=== PATIENT | male | born 1965 | race American Indian/Alaskan Native ===

== ENCOUNTER 2018-10-14 04:16 | Inpatient (IN) | payer SELFPAY ==
[2018-10-14] MEDS ORDERED: CATAPRES ONE (04:35)
[2018-10-14] MEDS ORDERED: CATAPRES PO ONE (04:43)
[2018-10-14 05:22] LABS: Basophils % (Auto) 0.6 % (0.0-1.8); Eosinophils # (Auto) 0.1 K/mm3 (0.0-0.4); Eosinophils % (Auto) 1.6 % (0.0-4.3); Hematocrit 39.5 % (35.5-45.6); Hemoglobin 13.2 gm/dl (11.8-15.2); Lymphocytes # (Auto) 2.1 K/mm3 (1.2-5.4); Lymphocytes % (Auto) 26.8 % (13.4-35.0); Mean Corpuscular HGB Conc 33 % (32-34); Mean Corpuscular Volume 90 fl (84-94); Monocytes # (Auto) 0.6 K/mm3 (0.0-0.8); Monocytes % (Auto) 8.1 % (0.0-7.3); Platelet Count 308 K/mm3 (140-440); Red Blood Count 4.38 M/mm3 (3.65-5.03); Red Cell Distribution Width 13.6 % (13.2-15.2)
[2018-10-14 05:39] LABS: Calcium 9.4 mg/dL (8.4-10.2)
--- NOTE | 2018-10-14 07:51 | Emergency Department Report ---
ED Neck Pain [facility] Chief Complaint: Neck Pain/Injury Stated Complaint: RIGHT SIDE NECK PAIN Time Seen by Provider: 10/14/18 07:50 ED Review of Systems ROS: Stated complaint: RIGHT SIDE NECK PAIN Other details as noted in HPI ED Past Medical Hx - Past Medical History Previous Medical History?: Yes Hx Hypertension: Yes Hx Congestive Heart Failure: No Hx Diabetes: Yes Hx Asthma: No Hx COPD: No Additional medical history: hypertension, right shoulder FX - Surgical History Past Surgical History?: No - Social History Smoking Status: Never Smoker Substance Use Type: None - Medications Home Medications: Home Medications Medication Instructions Recorded Confirmed Last Taken Type Insulin Glargine,Hum.rec.anlog 15 unit SQ QHS #3 ml 09/03/13 10/14/18 Unknown Rx [Lantus] Acetaminophen/Codeine 1 tab PO Q6H PRN #15 tab 05/15/14 10/14/18 Unknown Rx [Acetaminophen-Codeine #3 TAB] Diclofenac Dr [Voltaren Dr] 75 mg PO TID #21 tablet 05/15/14 10/14/18 Unknown Rx Metoprolol Succinate 50 mg PO HS 10/14/18 10/14/18 Unknown History NIFEdipine [Nifedipine ER] 1 tab PO HS 10/14/18 10/14/18 Unknown History Olmesartan Medoxomil 40 mg PO HS 10/14/18 10/14/18 Unknown History Torsemide 5 mg PO DAILY 10/14/18 10/14/18 Unknown History hydrALAZINE [Apresoline TAB] 50 mg PO BID 10/14/18 10/14/18 Unknown History Neck Pain Exam - Exam General: Vital signs noted. No distress. Alert and acting appropriately. ED Course Vital Signs 10/14/18 10/14/18 10/14/18 04:24 04:44 06:33 Temperature 98.2 F Pulse Rate 106 H 106 H 102 H Respiratory 18 18 Rate Blood Pressure 226/104 Blood Pressure 226/104 179/100 [Left] O2 Sat by Pulse 99 100 Oximetry ED Medical Decision Making - Lab Data Result diagrams: 10/14/18 05:01 10/14/18 05:01 Critical care attestation.: If time is entered above; I have spent that time in minutes in the direct care of this critically ill patient, excluding procedure time. ED Disposition Condition: Stable Referrals: MARIAM PALMER JR, MD [Primary Care Provider] - 3-5 Days
[2018-10-14] MEDS ORDERED: NORCO 5/325 PO ONE (10:01)
[2018-10-14] MEDS ORDERED: ZOFRAN IV ONE (10:03)
[2018-10-14] MEDS ORDERED: MORPHINE IV ONE (10:03)
[2018-10-14] MEDS ORDERED: NORMODYNE IV ONE (10:03)
[2018-10-14 10:17] LABS: Creatine Kinase MB 5.7 ng/mL (0.0-4.0)
[2018-10-14 10:18] LABS: Alanine Aminotransferase 21 units/L (7-56); Albumin 3.3 g/dL (3.9-5)
[2018-10-14 10:18] LABS: Bilirubin,Urine NEG (Negative); Blood,Urine SM (Negative); Color,Urine Straw (Yellow); Urobilinogen,Urine < 2.0 mg/dL (<2.0)
[2018-10-14 10:19] LABS: Bilirubin,Direct < 0.2 mg/dL (0-0.2)
--- NOTE | 2018-10-14 10:55 | Cat Scan Report ---
PROCEDURE: CT CERVICAL SPINE WO CON TECHNIQUE: Axial images obtained of the cervical spine without intravenous contrast. Sagittal and co demetrius reconstructions also obtained HISTORY: l side neck pain COMPARISONS: No priors. FINDINGS: There is no evidence of acute cervical spine fracture. Degenerative changes of the cervical spine with multilevel facet joint arthropathy, narrowing of inte rvertebral disc spaces and disc osteophyte complexes. Calcification along the nuchal ligament. No prevertebral soft tissue swelling. Multilevel neural foraminal narrowing most prominently on the left at C3-C4 and bilaterally at C7-T1. IMPRESSION: . No evidence of acute cervical spine fracture. Degenerative changes of the cervical spine with multilevel neural foraminal narrowing most prominentl y on the left at C3-C4 and bilaterally at C7-T1. This document is electronically signed by Tevin Moore MD., October 14 2018 10:53:42 AM ET
--- NOTE | 2018-10-14 11:05 | Cat Scan Report ---
PROCEDURE: CT HEAD/BRAIN WO CON TECHNIQUE: Axial images of the head obtained without intravenous contrast. HISTORY: HTN, Neck pain, consider SAH COMPARISONS: Prior CT of the head from May 10, 2013 FINDINGS: Ventricles are normal in size and configuration. Mild periventricular hypodensity consistent with chronic ischemic changes related to small vessel dis ease, unchanged. Hyperdense and partially calcified mass bordering the left frontal skull, unchanged and most consiste nt with meningioma. This measures approximately 1.4 cm in diameter. No acute intracranial hemorrhage or hematoma. No edema or sulcal effacement. No mass or mass effect. Left maxillary mucous retention cyst or polyp. IMPRESSION: . No acute intracranial pathology. Stable hyperdense partially calcified mass bordering the left frontal skull, most consistent with sma ll meningioma. This document is electronically signed by Tevin Moore MD., October 14 2018 11:03:41 AM ET
--- NOTE | 2018-10-14 13:04 | Emergency Department Report ---
ED General Adult HPI - General Chief complaint: Neck Pain/Injury Stated complaint: RIGHT SIDE NECK PAIN Time Seen by Provider: 10/14/18 07:50 Source: patient Mode of arrival: Ambulatory Limitations: No Limitations - History of Present Illness Initial comments: This is a 53-year-old male who presents to the emergency department with the chief complaint of left sided neck pain. He states that he's had chronic problems with his right shoulder since a work-related injury. He states that his shoulder was fractured. He has had an MR study of the shoulder but does not mention rotator cuff injury. He states that he did not have an MR of his neck nor is his neck pain obviously related to injury. Does not complain of headache nausea vomiting or photophobia. The pain is principally in the left side of his neck. This is an insulin-dependent diabetic with history of hypertension. He had normal renal function when seen 2013. He states that he has been to the doctor "5 times since then". He states his last blood work was within a year and was normal. He is found to have a creatinine of 3.7 today. He has no history of chronic renal insufficiency. Quality: aching Consistency: intermittent Improves with: none Worsens with: movement Associated Symptoms: denies other symptoms - Related Data Home Medications Medication Instructions Recorded Confirmed Last Taken Metoprolol Succinate 50 mg PO HS 10/14/18 10/14/18 Unknown NIFEdipine [Nifedipine ER] 1 tab PO HS 10/14/18 10/14/18 Unknown Olmesartan Medoxomil 40 mg PO HS 10/14/18 10/14/18 Unknown Torsemide 5 mg PO DAILY 10/14/18 10/14/18 Unknown hydrALAZINE [Apresoline TAB] 50 mg PO BID 10/14/18 10/14/18 Unknown Previous Rx's Medication Instructions Recorded Last Taken Type Insulin Glargine,Hum.rec.anlog 15 unit SQ QHS #3 ml 09/03/13 Unknown Rx [Lantus] Acetaminophen/Codeine 1 tab PO Q6H PRN #15 tab 05/15/14 Unknown Rx [Acetaminophen-Codeine #3 TAB] Ana Cristina Beaver [Tayo Bevaer] 75 mg PO TID #21 tablet 05/15/14 Unknown Rx Allergies Allergy/AdvReac Type Severity Reaction Status Date / Time No Known Allergies Allergy Unverified 11/21/13 10:21 ED Review of Systems ROS: Stated complaint: RIGHT SIDE NECK PAIN Other details as noted in HPI Constitutional: denies: chills, fever Eyes: denies: eye pain, eye discharge, vision change ENT: denies: ear pain, throat pain Respiratory: denies: cough, shortness of breath, wheezing Cardiovascular: denies: chest pain, palpitations Endocrine: no symptoms reported Gastrointestinal: denies: abdominal pain, nausea, diarrhea Genitourinary: denies: urgency, dysuria Musculoskeletal: denies: back pain, joint swelling, arthralgia Skin: denies: rash, lesions Neurological: denies: headache, weakness, paresthesias Psychiatric: denies: anxiety, depression Hematological/Lymphatic: denies: easy bleeding, easy bruising ED Past Medical Hx - Past Medical History Previous Medical History?: Yes Hx Hypertension: Yes Hx Congestive Heart Failure: No Hx Diabetes: Yes Hx Asthma: No Hx COPD: No Additional medical history: hypertension, right shoulder FX - Surgical History Past Surgical History?: No - Social History Smoking Status: Never Smoker Substance Use Type: None - Medications Home Medications: Home Medications Medication Instructions Recorded Confirmed Last Taken Type Insulin Glargine,Hum.rec.anlog 15 unit SQ QHS #3 ml 09/03/13 10/14/18 Unknown Rx [Lantus] Acetaminophen/Codeine 1 tab PO Q6H PRN #15 tab 05/15/14 10/14/18 Unknown Rx [Acetaminophen-Codeine #3 TAB] Diclofenac Dr [Voltareoren Dr] 75 mg PO TID #21 tablet 05/15/14 10/14/18 Unknown Rx Metoprolol Succinate 50 mg PO HS 10/14/18 10/14/18 Unknown History NIFEdipine [Nifedipine ER] 1 tab PO HS 10/14/18 10/14/18 Unknown History Olmesartan Medoxomil 40 mg PO HS 10/14/18 10/14/18 Unknown History Torsemide 5 mg PO DAILY 10/14/18 10/14/18 Unknown History hydrALAZINE [Apresoline TAB] 50 mg PO BID 10/14/18 10/14/18 Unknown History ED Physical Exam - General Limitations: No Limitations General appearance: alert, in no apparent distress - Head Head exam: Present: atraumatic, normocephalic - Eye Eye exam: Present: normal appearance. Absent: scleral icterus - ENT ENT exam: Present: mucous membranes moist - Neck Neck exam: Present: normal inspection, tenderness (paravertebral discomfort somewhat diffusely on the left, no vertebral tenderness). Absent: meningismus, full ROM (some discomfort on range of motion) - Respiratory Respiratory exam: Present: normal lung sounds bilaterally. Absent: respiratory distress - Cardiovascular Cardiovascular Exam: Present: regular rate, normal rhythm. Absent: systolic murmur, diastolic murmur, rubs, gallop - GI/Abdominal GI/Abdominal exam: Present: soft, normal bowel sounds. Absent: distended, tenderness, guarding, rebound, rigid - Rectal Rectal exam: Present: deferred - Extremities Exam Extremities exam: Present: normal inspection - Back Exam Back exam: Present: normal inspection - Neurological Exam Neurological exam: Present: alert, oriented X3, CN II-XII intact. Absent: motor sensory deficit - Psychiatric Psychiatric exam: Present: normal affect, normal mood - Skin Skin exam: Present: warm, dry, intact, normal color. Absent: rash ED Course Vital Signs 10/14/18 10/14/18 10/14/18 04:24 04:44 06:33 Temperature 98.2 F Pulse Rate 106 H 106 H 102 H Respiratory 18 18 Rate Blood Pressure 226/104 Blood Pressure 226/104 179/100 [Left] O2 Sat by Pulse 99 100 Oximetry 10/14/18 10/14/18 10/14/18 08:23 08:30 08:34 Temperature Pulse Rate 78 Respiratory 22 18 20 Rate Blood Pressure 175/88 Blood Pressure [Left] O2 Sat by Pulse 93 Oximetry 10/14/18 10/14/18 10/14/18 08:45 09:00 09:15 Temperature Pulse Rate 78 78 87 Respiratory 17 18 23 Rate Blood Pressure 179/91 175/91 193/100 Blood Pressure [Left] O2 Sat by Pulse 94 94 96 Oximetry 10/14/18 10/14/18 09:28 10:33 Temperature 98.6 F Pulse Rate 72 Respiratory Rate Blood Pressure 194/97 Blood Pressure [Left] O2 Sat by Pulse Oximetry - Reevaluation(s) Reevaluation #1: Discussed with Dr. Mcconnell. B/P improved 160/90. Acute renal insufficiency with uncontrolled HTN. Patient has severe cervical spondylosis. He'll need further workup with MRI however it has not required on an emergency basis. He will be admitted to the hospitalist service for further care and evaluation. 10/14/18 13:19 ED Medical Decision Making - Lab Data Result diagrams: 10/14/18 05:01 10/14/18 05:01 Laboratory Results - last 24 hr 10/14/18 10/14/18 10/14/18 05:01 05:01 09:28 WBC 7.9 RBC 4.38 Hgb 13.2 Hct 39.5 MCV 90 MCH 30 MCHC 33 RDW 13.6 Plt Count 308 Lymph % (Auto) 26.8 [place] % (Auto) 8.1 H Eos % (Auto) 1.6 Baso % (Auto) 0.6 Lymph # 2.1 [place] # 0.6 Eos # 0.1 Baso # 0.0 Seg Neutrophils % 62.9 Seg Neutrophils # 4.9 Sodium 137 Potassium 4.4 Chloride 101.9 Carbon Dioxide 22 Anion Gap 18 BUN 41 H Creatinine 3.7 H Estimated GFR 21 BUN/Creatinine Ratio 11 Glucose 183 H Calcium 9.4 Phosphorus Total Bilirubin Direct Bilirubin Indirect Bilirubin AST ALT Alkaline Phosphatase Total Creatine Kinase CK-MB (CK-2) CK-MB (CK-2) Rel Index Total Protein Albumin Albumin/Globulin Ratio Urine Color Straw Urine Turbidity Clear Urine pH 6.0 Ur Specific [place] 1.015 Urine Protein 100 mg/dl Urine Glucose (UA) 50 Urine Ketones Neg Urine Blood Sm Urine Nitrite Neg Urine Bilirubin Neg Urine Urobilinogen < 2.0 Ur Leukocyte Esterase Neg Urine WBC (Auto) 1.0 Urine RBC (Auto) 4.0 U Epithel Cells (Auto) < 1.0 10/14/18 10:00 WBC RBC Hgb Hct MCV MCH MCHC RDW Plt Count Lymph % (Auto) [place] % (Auto) Eos % (Auto) Baso % (Auto) Lymph # [place] # Eos # Baso # Seg Neutrophils % Seg Neutrophils # Sodium Potassium Chloride Carbon Dioxide Anion Gap BUN Creatinine Estimated GFR BUN/Creatinine Ratio Glucose Calcium Phosphorus 3.50 Total Bilirubin < 0.20 Direct Bilirubin < 0.2 Indirect Bilirubin 0.0 AST 21 ALT 21 Alkaline Phosphatase 53 Total Creatine Kinase 628 H CK-MB (CK-2) 5.7 H CK-MB (CK-2) Rel Index 0.9 Total Protein 7.5 Albumin 3.3 L Albumin/Globulin Ratio 0.8 Urine Color Urine Turbidity Urine pH Ur Specific [place] Urine Protein Urine Glucose (UA) Urine Ketones Urine Blood Urine Nitrite Urine Bilirubin Urine Urobilinogen Ur Leukocyte Esterase Urine WBC (Auto) Urine RBC (Auto) U Epithel Cells (Auto) - EKG Data -: EKG Interpreted by Me EKG shows normal: sinus rhythm, axis, intervals Rate: normal - EKG Data When compared to previous EKG there are: no significant change (similar to 2013), previous EKG unavailable Interpretation: other (left axis deviation, possible left anterior fascicular block, LVH with associated repolarization abnormality, poor R-wave progression; abnormal EKG. ) Possible old inferior zone, tiny r wave. 10/14/18 14:35 10/14/18 14:36 Critical care attestation.: If time is entered above; I have spent that time in minutes in the direct care of this critically ill patient, excluding procedure time. 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
[2018-10-14] MEDS ORDERED: ASPIRIN PO ONE (13:51)
[2018-10-14] MEDS ORDERED: ASPIRIN ONE (14:36)
--- NOTE | 2018-10-14 15:16 | Ultrasound Report ---
PROCEDURE: US RENAL BILAT TECHNIQUE: Renal ultrasound. HISTORY: acute renal failure COMPARISONS: None currently available. FINDINGS: RIGHT kidney: 11.6 x 4.4 x 5.1 cm. Cortex measures 1.5 cm. Normal echotexture. 9 x 1 x 6 mm stone in the midpole. No hydronephrosis. No cortical lesions. LEFT kidney: 12.3 x 6.0 x 6.0 cm. Cortex measures 1.7 cm. Normal echotexture. 11 x 6 x 13 mm stone up per pole. 10 x 2 x 11 mm stone lower pole. No hydronephrosis. No cortical lesions. Bladder: Limited images of the bladder are unremarkable. IMPRESSION: * Bilateral renal stones. No hydronephrosis. This document is electronically signed by Gregory Ac MD., October 14 2018 03:14:17 PM ET
[2018-10-14] MEDS ORDERED: TYLENOL #3 PO PRN (20:11)
[2018-10-14] MEDS ORDERED: PERCOCET 5/325 PO PRN (20:15)
[2018-10-14] MEDS ORDERED: DILAUDID IV PRN (20:15)
[2018-10-14] MEDS ORDERED: TYLENOL PO PRN (20:15)
[2018-10-14] MEDS ORDERED: REGLAN IV PRN ×2 (20:15→20:34)
[2018-10-14] MEDS ORDERED: ZOFRAN IV PRN (20:15)
[2018-10-14] MEDS ORDERED: MILK OF MAGNESIA PO PRN (20:15)
[2018-10-14] MEDS ORDERED: AMBIEN PO PRN (20:15)
[2018-10-14] MEDS ORDERED: SODIUM CHLORIDE FLUSH SYRINGE 10 ML IV PRN (20:15)
--- NOTE | 2018-10-14 21:19 | History and Physical Report ---
History of Present Illness Date of examination: 10/14/18 Date of admission: 10/14/18 13:48 Chief complaint: Severe neck pain 1 day History of present illness: 52-year-old -Chinese male with past medical history significant for insulin-dependent diabetes, hypertension, right shoulder fracture and severe neck pain secondary to a object falling on his neck at work couple months ago comes in for severe left-sided neck pain. Pain is about 8 on scale of 1-10. Workup in the emergency room revealed a uncontrolled blood pressure and elevated creatinine of 3.7. His creatinine was normal the 08/31/2013. BUN/creatinine was 15 and 1.3. Past Medical History Previous Medical History?: Yes Hypertension IDDM Rt Shoulder FX Surgical History Past Surgical History?: No Social History Smoking Status: Never Smoker Substance Use Type: None Family history Htn Medications Home Medications: Home Medications Medication Instructions Recorded Confirmed Last Taken Type Insulin Glargine,Hum.rec.anlog 15 unit SQ QHS #3 ml 09/03/13 10/14/18 Unknown Rx [Lantus] Acetaminophen/Codeine 1 tab PO Q6H PRN #15 tab 05/15/14 10/14/18 Unknown Rx [Acetaminophen-Codeine #3 TAB] Diclofenac Dr [Voltaren Dr] 75 mg PO TID #21 tablet 05/15/14 10/14/18 Unknown Rx Metoprolol Succinate 50 mg PO HS 10/14/18 10/14/18 Unknown History NIFEdipine [Nifedipine ER] 1 tab PO HS 10/14/18 10/14/18 Unknown History Olmesartan Medoxomil 40 mg PO HS 10/14/18 10/14/18 Unknown History Torsemide 5 mg PO DAILY 10/14/18 10/14/18 Unknown History hydrALAZINE [Apresoline TAB] 50 mg PO BID 10/14/18 10/14/18 Unknown History Review of Systems ROS: Stated complaint: RIGHT SIDE NECK PAIN Other details as noted in HPI Constitutional: denies: chills, fever Eyes: denies: eye pain, eye discharge, vision change ENT: denies: ear pain, throat pain Respiratory: denies: cough, shortness of breath, wheezing Cardiovascular: denies: chest pain, palpitations Endocrine: no symptoms reported Gastrointestinal: denies: abdominal pain, nausea, diarrhea Genitourinary: denies: urgency, dysuria Musculoskeletal: denies: back pain, joint swelling, arthralgia Skin: denies: rash, lesions Neurological: denies: headache, weakness, paresthesias Psychiatric: denies: anxiety, depression Hematological/Lymphatic: denies: easy bleeding, easy bruising Medications and Allergies Allergies Allergy/AdvReac Type Severity Reaction Status Date / Time No Known Allergies Allergy Unverified 05/10/13 10:21 Home Medications Medication Instructions Recorded Confirmed Last Taken Type Insulin Glargine,Hum.rec.anlog 15 unit SQ QHS #3 ml 09/03/13 10/14/18 Unknown Rx [Lantus] Acetaminophen/Codeine 1 tab PO Q6H PRN #15 tab 05/15/14 10/14/18 Unknown Rx [Acetaminophen-Codeine #3 TAB] Diclofenac Dr [Tayo Beaver] 75 mg PO TID #21 tablet 05/15/14 10/14/18 Unknown Rx Metoprolol Succinate 50 mg PO HS 10/14/18 10/14/18 Unknown History NIFEdipine [Nifedipine ER] 1 tab PO HS 10/14/18 10/14/18 Unknown History Olmesartan Medoxomil 40 mg PO HS 10/14/18 10/14/18 Unknown History Torsemide 5 mg PO DAILY 10/14/18 10/14/18 Unknown History hydrALAZINE [Apresoline TAB] 50 mg PO BID 10/14/18 10/14/18 Unknown History Active Meds: Active Medications Acetaminophen (Tylenol) 650 mg PO Q4H PRN PRN Reason: Pain MILD(1-3)/Fever >100.5/MASTERSON Acetaminophen/Codeine Phosphate (Tylenol #3) 1 tab PO Q6H PRN PRN Reason: Pain Diclofenac Sodium (Tayo Beaver) 75 mg PO TID LISA Hydralazine HCl (Apresoline) 50 mg PO BID LISA Hydromorphone HCl (Dilaudid) 1 mg IV Q3H PRN PRN Reason: Pain , Severe (7-10) Insulin Glargine (Lantus) 15 units SUB-Q QHS LISA Losartan Potassium (Cozaar) 100 mg PO QHS LISA Magnesium Hydroxide (Milk Of Magnesia) 30 ml PO Q4H PRN PRN Reason: Constipation Metoclopramide HCl (Reglan) 5 mg IV Q6H PRN PRN Reason: Nausea And Vomiting Metoprolol Succinate (Toprol Xl) 50 mg PO QHS LISA Nifedipine (Procardia Xl) 60 mg PO HS LISA Ondansetron HCl (Zofran) 4 mg IV Q8H PRN PRN Reason: Nausea And Vomiting Oxycodone/Acetaminophen (Percocet 5/325) 1 tab PO Q6H PRN PRN Reason: Pain, Moderate (4-6) Sodium Chloride (Sodium Chloride Flush Syringe 10 Ml) 10 ml IV BID LISA Sodium Chloride (Sodium Chloride Flush Syringe 10 Ml) 10 ml IV PRN PRN PRN Reason: LINE FLUSH Zolpidem Tartrate (Ambien) 5 mg PO QHS PRN PRN Reason: Insomnia Exam - Constitutional Vitals: Temp Pulse Resp BP Pulse Ox 98.0 F 65 18 146/76 97 10/14/18 16:06 10/14/18 16:06 10/14/18 16:06 10/14/18 16:06 10/14/18 16:06 General appearance: Present: no acute distress, well-nourished - EENT Eyes: Present: PERRL ENT: hearing intact, clear oral mucosa, other - Neck Neck: Present: supple, normal ROM, other (cervical tenderness) - Respiratory Respiratory effort: normal Respiratory: bilateral: CTA - Cardiovascular Heart rate: 78 Rhythm: regular Heart Sounds: Present: S1 & S2. Absent: rub, click - Extremities Extremities: no ischemia, pulses intact, pulses symmetrical, No edema Peripheral Pulses: within normal limits - Abdominal General gastrointestinal: Present: soft, non-tender, non-distended, normal bowel sounds Male genitourinary: Present: normal - Rectal Rectal Exam: deferred - Integumentary Integumentary: Present: clear, warm, dry - Musculoskeletal Musculoskeletal: gait normal, strength equal bilaterally - Psychiatric Psychiatric: appropriate mood/affect, intact judgment & insight - Neurologic Neurologic: CNII-XII intact, moves all extremities - Allied Health Allied health notes reviewed: nursing, case management Results - Labs CBC & Chem 7: 10/14/18 05:01 10/14/18 05:01 Labs: Laboratory Last Values WBC 7.9 K/mm3 (4.5-11.0) 10/14/18 05:01 RBC 4.38 M/mm3 (3.65-5.03) 10/14/18 05:01 Hgb 13.2 gm/dl (11.8-15.2) 10/14/18 05:01 Hct 39.5 % (35.5-45.6) 10/14/18 05:01 MCV 90 fl (84-94) 10/14/18 05:01 MCH 30 pg (28-32) 10/14/18 05:01 MCHC 33 % (32-34) 10/14/18 05:01 RDW 13.6 % (13.2-15.2) 10/14/18 05:01 Plt Count 308 K/mm3 (140-440) 10/14/18 05:01 Lymph % (Auto) 26.8 % (13.4-35.0) 10/14/18 05:01 [place] % (Auto) 8.1 % (0.0-7.3) H 10/14/18 05:01 Eos % (Auto) 1.6 % (0.0-4.3) 10/14/18 05:01 Baso % (Auto) 0.6 % (0.0-1.8) 10/14/18 05:01 Lymph # 2.1 K/mm3 (1.2-5.4) 10/14/18 05:01 [place] # 0.6 K/mm3 (0.0-0.8) 10/14/18 05:01 Eos # 0.1 K/mm3 (0.0-0.4) 10/14/18 05:01 Baso # 0.0 K/mm3 (0.0-0.1) 10/14/18 05:01 Seg Neutrophils % 62.9 % (40.0-70.0) 10/14/18 05:01 Seg Neutrophils # 4.9 K/mm3 (1.8-7.7) 10/14/18 05:01 Sodium 137 mmol/L (137-145) 10/14/18 05:01 Potassium 4.4 mmol/L (3.6-5.0) 10/14/18 05:01 Chloride 101.9 mmol/L (98-107) 10/14/18 05:01 Carbon Dioxide 22 mmol/L (22-30) 10/14/18 05:01 Anion Gap 18 mmol/L 10/14/18 05:01 BUN 41 mg/dL (9-20) H 10/14/18 05:01 Creatinine 3.7 mg/dL (0.8-1.5) H 10/14/18 05:01 Estimated GFR 21 ml/min 10/14/18 05:01 BUN/Creatinine Ratio 11 % 10/14/18 05:01 Glucose 183 mg/dL (75-100) H 10/14/18 05:01 POC Glucose 53 (70-105) L 10/14/18 17:59 Calcium 9.4 mg/dL (8.4-10.2) 10/14/18 05:01 Phosphorus 3.50 mg/dL (2.5-4.5) 10/14/18 10:00 Total Bilirubin < 0.20 mg/dL (0.1-1.2) 10/14/18 10:00 Direct Bilirubin < 0.2 mg/dL (0-0.2) 10/14/18 10:00 Indirect Bilirubin 0.0 mg/dL 10/14/18 10:00 AST 21 units/L (5-40) 10/14/18 10:00 ALT 21 units/L (7-56) 10/14/18 10:00 Alkaline Phosphatase 53 units/L (35-129) 10/14/18 10:00 Total Creatine Kinase 628 units/L (55-170) H 10/14/18 10:00 CK-MB (CK-2) 5.7 ng/mL (0.0-4.0) H 10/14/18 10:00 CK-MB (CK-2) Rel Index 0.9 (0-4) 10/14/18 10:00 Total Protein 7.5 g/dL (6.3-8.2) 10/14/18 10:00 Albumin 3.3 g/dL (3.9-5) L 10/14/18 10:00 Albumin/Globulin Ratio 0.8 % 10/14/18 10:00 Urine Color Straw (Yellow) 10/14/18 09:28 Urine Turbidity Clear (Clear) 10/14/18 09:28 Urine pH 6.0 (5.0-7.0) 10/14/18 09:28 Ur Specific [place] 1.015 (1.003-1.030) 10/14/18 09:28 Urine Protein 100 mg/dl mg/dL (Negative) 10/14/18 09:28 Urine Glucose (UA) 50 mg/dL (Negative) 10/14/18 09:28 Urine Ketones Neg mg/dL (Negative) 10/14/18 09:28 Urine Blood Sm (Negative) 10/14/18 09:28 Urine Nitrite Neg (Negative) 10/14/18 09:28 Urine Bilirubin Neg (Negative) 10/14/18 09:28 Urine Urobilinogen < 2.0 mg/dL (<2.0) 10/14/18 09:28 Ur Leukocyte Esterase Neg (Negative) 10/14/18 09:28 Urine WBC (Auto) 1.0 /HPF (0.0-6.0) 10/14/18 09:28 Urine RBC (Auto) 4.0 /HPF (0.0-6.0) 10/14/18 09:28 U Epithel Cells (Auto) < 1.0 /HPF (0-13.0) 10/14/18 09:28 Short CBC 10/14/18 Range/Units 05:01 WBC 7.9 (4.5-11.0) K/mm3 Hgb 13.2 (11.8-15.2) gm/dl Hct 39.5 (35.5-45.6) % Plt Count 308 (140-440) K/mm3 BMP 10/14/18 05:01 Sodium 137 Potassium 4.4 Chloride 101.9 Carbon Dioxide 22 BUN 41 H Creatinine 3.7 H Glucose 183 H Calcium 9.4 Cardiac Enzymes 10/14/18 Range/Units 10:00 Total Creatine Kinase 628 H (55-170) units/L CK-MB (CK-2) 5.7 H (0.0-4.0) ng/mL Liver Function 10/14/18 Range/Units 10:00 Total Bilirubin < 0.20 (0.1-1.2) mg/dL Direct Bilirubin < 0.2 (0-0.2) mg/dL AST 21 (5-40) units/L ALT 21 (7-56) units/L Alkaline Phosphatase 53 (35-129) units/L Albumin 3.3 L (3.9-5) g/dL Urine 10/14/18 Range/Units 09:28 Urine Color Straw (Yellow) Urine pH 6.0 (5.0-7.0) Ur Specific [place] 1.015 (1.003-1.030) Urine Protein 100 mg/dl (Negative) mg/dL Urine Glucose (UA) 50 (Negative) mg/dL - Imaging and Cardiology Imaging and Cardiology: CT neck IMPRESSION: No evidence of acute cervical spine fracture. Degenerative changes of the cervical spine with multilevel neural foraminal narrowing most prominently on the left at C3-C4 and bilaterally at C7-T1. Head CT IMPRESSION: No acute intracranial pathology. Stable hyperdense partially calcified mass bordering the left frontal skull, most consistent with small meningioma. This document is electronically signed by Tevin Moore MD., October 14 2018 11:03:41 AM ET Renal ultrasound IMPRESSION: Bilateral renal stones. No hydronephrosis. This document is electronically signed by Gregory Ac MD., October 14 2018 03:14:17 PM ET Assessment and Plan Advance Directives: Yes (full code) VTE prophylaxis?: Chemical Plan of care discussed with patient/family: Yes - Patient Problems (1) Acute kidney injury Current Visit: Yes Status: Acute Plan to address problem: IV fluids for now Nephrology consult Baseline creatinine was 1.3 in August 2013 Patient on torsemide which may be causing volume depletion Torsemide kept on hold (2) Neck pain on left side Current Visit: Yes Status: Acute Plan to address problem: Has foraminal narrowing C4 C5 C6 on the left side Will get MRI of the neck for better delineation Pain control in the meantime (3) Hypertensive emergency Current Visit: Yes Status: Acute Plan to address problem: Antihypertensives restarted Adjust the medications Patient on 4 antihypertensives Compliance counseled (4) Insulin dependent diabetes mellitus Current Visit: Yes Status: Chronic Plan to address problem: Check hemoglobin A1c Continue insulin Adjust insulin dosage (5) DVT prophylaxis Current Visit: Yes Status: Acute Plan to address problem: Heparin 5000 every 12 hours and GI prophylaxis
[2018-10-14] MEDS ORDERED: APRESOLINE PO SCH (22:00)
[2018-10-14] MEDS ORDERED: OLMESARTAN MEDOXOMIL 40 MG PO SCH (22:00)
[2018-10-14] MEDS ORDERED: COZAAR PO SCH (22:00)
[2018-10-14] MEDS ORDERED: METOPROLOL SUCCINATE 50 MG PO SCH (22:00)
[2018-10-14] MEDS: PROCARDIA XL PO SCH (22:15)
[2018-10-14] MEDS: TOPROL XL PO SCH (22:16)
[2018-10-14] MEDS: SODIUM CHLORIDE FLUSH SYRINGE 10 ML IV SCH (22:18)
[2018-10-15] MEDS: LANTUS SUB-Q SCH ×2 (00:37→00:47)
[2018-10-15] MEDS: HEPARIN SUB-Q SCH ×3 (00:41→22:33)
[2018-10-15 06:36] LABS: Basophils # (Auto) 0.1 K/mm3 (0.0-0.1); Basophils % (Auto) 0.8 % (0.0-1.8); Eosinophils # (Auto) 0.1 K/mm3 (0.0-0.4); Hemoglobin 13.2 gm/dl (11.8-15.2); Lymphocytes # (Auto) 2.9 K/mm3 (1.2-5.4); Lymphocytes % (Auto) 43.2 % (13.4-35.0); Mean Corpuscular HGB Conc 33 % (32-34); Mean Corpuscular Volume 90 fl (84-94); Monocytes # (Auto) 0.6 K/mm3 (0.0-0.8); Monocytes % (Auto) 8.8 % (0.0-7.3); Platelet Count 315 K/mm3 (140-440); Red Blood Count 4.43 M/mm3 (3.65-5.03); Red Cell Distribution Width 13.8 % (13.2-15.2)
[2018-10-15 06:59] LABS: Calcium 9.1 mg/dL (8.4-10.2)
[2018-10-15] MEDS ORDERED: VOLTAREN DR PO SCH (08:00)
[2018-10-15] MEDS ORDERED: D50W (25GM) Syringe IV PRN ×2 (08:00→08:11)
--- NOTE | 2018-10-15 09:34 | Consultation ---
History of Present Illness - Reason for Consult Consult date: 10/15/18 acute renal failure - History of Present Illness Mr. Reno is a 53yo with hx of type II DM and hypertension who presented to the ED with complaint of neck pain. Labs were collected and notable for creatinine 3.7mg/dL He denies epistaxis, hemoptysis, gross hematuria, nephrolithisis, recurrent UTI. He denies a history of OTC NSAID. Diclofenac is on medication list from 2013 but patient states that he is not taking this. Contacted [facility] pharmacy and patient has not been rx this medication recently. He denies a prior hx of CKD. Labs in 2014 notable for SCr 1.5mg/dL. He reports a recent 2 month period of noncompliance with BP and DM medications - states that he stopped all medications but has recently resumed medications He denies nausea, vomiting, diarrhea, SOB. Reports good appetite. Past History Past Medical History: diabetes, hypertension Past Surgical History: No surgical history Social history: no significant social history Family history: no significant family history, other (denies family history of kidney disease) Medications and Allergies Allergies Allergy/AdvReac Type Severity Reaction Status Date / Time No Known Allergies Allergy Unverified 05/10/13 10:21 Home Medications Medication Instructions Recorded Confirmed Last Taken Type Insulin Glargine,Hum.rec.anlog 15 unit SQ QHS #3 ml 09/03/13 10/14/18 Unknown Rx [Lantus] Acetaminophen/Codeine 1 tab PO Q6H PRN #15 tab 05/15/14 10/14/18 Unknown Rx [Acetaminophen-Codeine #3 TAB] Diclofenac [Tayo Beaver] 75 mg PO TID #21 tablet 05/15/14 10/14/18 Unknown Rx Metoprolol Succinate 50 mg PO HS 10/14/18 10/14/18 Unknown History NIFEdipine [Nifedipine ER] 1 tab PO HS 10/14/18 10/14/18 Unknown History Olmesartan Medoxomil 40 mg PO HS 10/14/18 10/14/18 Unknown History Torsemide 5 mg PO DAILY 10/14/18 10/14/18 Unknown History hydrALAZINE [Apresoline TAB] 50 mg PO BID 10/14/18 10/14/18 Unknown History Active Meds: Active Medications Acetaminophen (Tylenol) 650 mg PO Q4H PRN PRN Reason: Pain MILD(1-3)/Fever >100.5/MASTERSON Acetaminophen/Codeine Phosphate (Tylenol #3) 1 tab PO Q6H PRN PRN Reason: Pain Dextrose (D50w (25gm) Syringe) 50 ml IV PRN PRN PRN Reason: Hypoglycemia Last Admin: 10/15/18 08:20 Dose: 50 ml Documented by: Heparin Sodium (Porcine) (Heparin) 5,000 unit SUB-Q Q12HR [facility] Last Admin: 10/15/18 00:41 Dose: 5,000 unit Documented by: Hydralazine HCl (Apresoline) 50 mg PO BID [facility] Last Admin: 10/14/18 22:15 Dose: 50 mg Documented by: Hydromorphone HCl (Dilaudid) 1 mg IV Q3H PRN PRN Reason: Pain , Severe (7-10) Last Admin: 10/14/18 22:18 Dose: 1 mg Documented by: Insulin Glargine (Lantus) 15 units SUB-Q QHS [facility] Last Admin: 10/15/18 00:47 Dose: Not Given Documented by: Losartan Potassium (Cozaar) 100 mg PO QHS [facility] Last Admin: 10/14/18 22:17 Dose: 100 mg Documented by: Magnesium Hydroxide (Milk Of Magnesia) 30 ml PO Q4H PRN PRN Reason: Constipation Metoclopramide HCl (Reglan) 5 mg IV Q6H PRN PRN Reason: Nausea And Vomiting Metoprolol Succinate (Toprol Xl) 50 mg PO QHS [facility] Last Admin: 10/14/18 22:16 Dose: 50 mg Documented by: Nifedipine (Procardia Xl) 60 mg PO [facility] Last Admin: 10/14/18 22:15 Dose: 60 mg Documented by: Ondansetron HCl (Zofran) 4 mg IV Q8H PRN PRN Reason: Nausea And Vomiting Oxycodone/Acetaminophen (Percocet 5/325) 1 tab PO Q6H PRN PRN Reason: Pain, Moderate (4-6) Sodium Chloride (Sodium Chloride Flush Syringe 10 Ml) 10 ml IV BID [facility] Last Admin: 10/14/18 22:18 Dose: 10 ml Documented by: Sodium Chloride (Sodium Chloride Flush Syringe 10 Ml) 10 ml IV PRN PRN PRN Reason: LINE FLUSH Zolpidem Tartrate (Ambien) 5 mg PO QHS PRN PRN Reason: Insomnia Review of Systems All systems: negative Exam - Vital Signs Vital signs: Vital Signs Temp Pulse Resp BP Pulse Ox 98.2 F 106 H 18 226/104 99 10/14/18 04:24 10/14/18 04:24 10/14/18 04:24 10/14/18 04:24 10/14/18 04:24 - General Appearance General appearance: well-developed, well-nourished EENT: ATNC Respiratory: Clear to Ascultation Heart: regular, S1S2 Gastrointestinal: Present: normal. Absent: tenderness, distended Integumentary: no rash, warm and dry Neurologic: alert and oriented x3 Musculoskeletal: Present: other (trace edema) Psychiatric: cooperative Results - Lab Results 10/15/18 05:51 10/15/18 05:51 Most recent lab results Calcium 9.1 mg/dL (8.4-10.2) 10/15/18 05:51 Phosphorus 3.50 mg/dL (2.5-4.5) 10/14/18 10:00 Assessment and Plan Impression: * Acute kidney injury secondary to prerenal azotemia vs ?CKD --UA +protein/+blood * Hypertension * Type II DM * Neck pain Plan: * No indication for renal replacement therapy at this time. Will obtain further work up * Continue IVF for hydration * Agree wtih holding diuretics * Will also hold ARB for now * Renal u/s ordered * Obtain serologic work up and urine studies (including urine eos) * Obtain records/labs from PCP - Dr. Tomi Iqbal; order entered and discussed with RN; form signed * Avoid potential nephrotoxins * Dose medications for renal function
[2018-10-15] MEDS: APRESOLINE PO SCH ×3 (10:26→20:55)
[2018-10-15] MEDS: SODIUM CHLORIDE FLUSH SYRINGE 10 ML IV SCH ×2 (10:26→22:33)
[2018-10-15 12:21] LABS: Hepatitis B Surface Antigen Non-Reactive (Negative); Hepatitis C Virus Antibody Non-Reactive (NonReactive)
[2018-10-15 12:30] LABS: Creatinine,Urine 103.5 mg/dL (0.1-20.0)
[2018-10-15 12:37] LABS: Protein/Creatinine Ratio,Urine 2.81
--- NOTE | 2018-10-15 13:32 | Progress Note ---
Assessment and Plan Assessment and plan: Acute renal failure -On IV fluids -creatinine level slightly improving, will monitor -Nephrology consulted Neck pain -CT cervical spine showed degenerative changes: C3 to C4 and C7 to T1 -MRI cervical spine pending Hypertension -Blood pressure improved, continue medication adjustments as needed DM2 -Blood glucose fluctuating -Hemoglobin A1c: 6.6 -Continue SSI Disposition: For discharge when medically stable History Interval history: Patient reports feeling better today. He has no new complaints. Hospitalist Physical - Constitutional Vitals: Temp Pulse Resp BP Pulse Ox 97.5 F L 67 20 158/83 96 10/15/18 06:27 10/15/18 06:27 10/15/18 06:27 10/15/18 10:26 10/15/18 06:27 General appearance: Present: no acute distress, obese - EENT Eyes: Present: PERRL, EOM intact ENT: hearing intact - Neck Neck: Present: supple - Respiratory Respiratory effort: normal Respiratory: bilateral: CTA - Cardiovascular Rhythm: regular Heart Sounds: Present: S1 & S2 - Extremities Extremity abnormal: edema (edema in bilateral ankle) - Abdominal General gastrointestinal: soft, non-tender, normal bowel sounds - Integumentary Integumentary: Present: clear, warm, dry - Neurologic Neurologic: CNII-XII intact Results - Labs CBC & Chem 7: 10/15/18 05:51 10/15/18 05:51 Labs: Laboratory Last Values WBC 6.7 K/mm3 (4.5-11.0) 10/15/18 05:51 RBC 4.43 M/mm3 (3.65-5.03) 10/15/18 05:51 Hgb 13.2 gm/dl (11.8-15.2) 10/15/18 05:51 Hct 40.0 % (35.5-45.6) 10/15/18 05:51 MCV 90 fl (84-94) 10/15/18 05:51 MCH 30 pg (28-32) 10/15/18 05:51 MCHC 33 % (32-34) 10/15/18 05:51 RDW 13.8 % (13.2-15.2) 10/15/18 05:51 Plt Count 315 K/mm3 (140-440) 10/15/18 05:51 Lymph % (Auto) 43.2 % (13.4-35.0) H 10/15/18 05:51 [place] % (Auto) 8.8 % (0.0-7.3) H 10/15/18 05:51 Eos % (Auto) 2.0 % (0.0-4.3) 10/15/18 05:51 Baso % (Auto) 0.8 % (0.0-1.8) 10/15/18 05:51 Lymph # 2.9 K/mm3 (1.2-5.4) 10/15/18 05:51 [place] # 0.6 K/mm3 (0.0-0.8) 10/15/18 05:51 Eos # 0.1 K/mm3 (0.0-0.4) 10/15/18 05:51 Baso # 0.1 K/mm3 (0.0-0.1) 10/15/18 05:51 Seg Neutrophils % 45.2 % (40.0-70.0) 10/15/18 05:51 Seg Neutrophils # 3.0 K/mm3 (1.8-7.7) 10/15/18 05:51 Sodium 140 mmol/L (137-145) 10/15/18 05:51 Potassium 4.4 mmol/L (3.6-5.0) 10/15/18 05:51 Chloride 104.4 mmol/L (98-107) 10/15/18 05:51 Carbon Dioxide 24 mmol/L (22-30) 10/15/18 05:51 Anion Gap 16 mmol/L 10/15/18 05:51 BUN 36 mg/dL (9-20) H 10/15/18 05:51 Creatinine 3.2 mg/dL (0.8-1.5) H 10/15/18 05:51 Estimated GFR 25 ml/min 10/15/18 05:51 BUN/Creatinine Ratio 11 % 10/15/18 05:51 Glucose 49 mg/dL (75-100) L 10/15/18 05:51 POC Glucose 71 (70-105) 10/15/18 11:59 Hemoglobin A1c 6.6 % (4-6) H 10/14/18 20:53 Calcium 9.1 mg/dL (8.4-10.2) 10/15/18 05:51 Phosphorus 3.50 mg/dL (2.5-4.5) 10/14/18 10:00 Total Bilirubin 0.20 mg/dL (0.1-1.2) 10/15/18 05:51 Direct Bilirubin < 0.2 mg/dL (0-0.2) 10/14/18 10:00 Indirect Bilirubin 0.0 mg/dL 10/14/18 10:00 AST 14 units/L (5-40) 10/15/18 05:51 ALT 13 units/L (7-56) 10/15/18 05:51 Alkaline Phosphatase 45 units/L (35-129) 10/15/18 05:51 Total Creatine Kinase 628 units/L (55-170) H 10/14/18 10:00 CK-MB (CK-2) 5.7 ng/mL (0.0-4.0) H 10/14/18 10:00 CK-MB (CK-2) Rel Index 0.9 (0-4) 10/14/18 10:00 Total Protein 7.2 g/dL (6.3-8.2) 10/15/18 05:51 Albumin 3.0 g/dL (3.9-5) L 10/15/18 05:51 Albumin/Globulin Ratio 0.7 % 10/15/18 05:51 Urine Color Straw (Yellow) 10/14/18 09:28 Urine Turbidity Clear (Clear) 10/14/18 09:28 Urine pH 6.0 (5.0-7.0) 10/14/18 09:28 Ur Specific [place] 1.015 (1.003-1.030) 10/14/18 09:28 Urine Protein 100 mg/dl mg/dL (Negative) 10/14/18 09:28 Urine Glucose (UA) 50 mg/dL (Negative) 10/14/18 09:28 Urine Ketones Neg mg/dL (Negative) 10/14/18 09:28 Urine Blood Sm (Negative) 10/14/18 09:28 Urine Nitrite Neg (Negative) 10/14/18 09:28 Urine Bilirubin Neg (Negative) 10/14/18 09:28 Urine Urobilinogen < 2.0 mg/dL (<2.0) 10/14/18 09:28 Ur Leukocyte Esterase Neg (Negative) 10/14/18 09:28 Urine WBC (Auto) 1.0 /HPF (0.0-6.0) 10/14/18 09:28 Urine RBC (Auto) 4.0 /HPF (0.0-6.0) 10/14/18 09:28 U Epithel Cells (Auto) < 1.0 /HPF (0-13.0) 10/14/18 09:28 Urine Creatinine 103.5 mg/dL (0.1-20.0) H 10/15/18 11:00 Protein/Creatinin Ratio 2.81 10/15/18 11:00 Urine Sodium 90 mmol/L 10/15/18 11:00 Urine Total Protein 291 mg/dL (5-11.8) H 10/15/18 11:00 Hepatitis A IgM Ab Non-reactive (NonReactive) 10/15/18 11:10 Hep Bs Antigen Non-reactive (Negative) 10/15/18 11:10 Hep B Core IgM Ab Non-reactive (NonReactive) 10/15/18 11:10 Hepatitis C Antibody Non-reactive (NonReactive) 10/15/18 11:10 Active Medications - Current Medications Current Medications: Generic Name Dose Route Start Last Admin Trade Name Freq PRN Reason Stop Dose Admin Acetaminophen 650 mg 10/14/18 20:15 Tylenol PO Q4H PRN Pain MILD(1-3)/Fever >100.5/MASTERSON Acetaminophen/Codeine Phosphate 1 tab 10/14/18 20:11 Tylenol #3 PO Q6H PRN Pain Dextrose 50 ml 10/15/18 08:11 10/15/18 08:20 D50w (25gm) Syringe IV 50 ml PRN PRN Administration Hypoglycemia Heparin Sodium (Porcine) 5,000 unit 10/14/18 22:15 10/15/18 10:27 Heparin SUB-Q 5,000 unit Q12HR LISA Administration Hydralazine HCl 50 mg 10/15/18 10:00 10/15/18 10:26 Apresoline PO 50 mg TID LISA Administration Hydromorphone HCl 1 mg 10/14/18 20:15 10/14/18 22:18 Dilaudid IV 1 mg Q3H PRN Administration Pain , Severe (7-10) Sodium Chloride 1,000 mls @ 125 mls/hr 10/15/18 14:00 Nacl 0.9% 1000 Ml IV DIRECT LISA Insulin Human Lispro 0 unit 10/15/18 11:30 Humalog SUB-Q ACHS [facility] Protocol Magnesium Hydroxide 30 ml 10/14/18 20:15 Milk Of Magnesia PO Q4H PRN Constipation Metoclopramide HCl 5 mg 10/14/18 20:34 Reglan IV Q6H PRN Nausea And Vomiting Metoprolol Succinate 50 mg 10/14/18 22:00 10/14/18 22:16 Toprol Xl PO 50 mg QHS LISA Administration Nifedipine 60 mg 10/14/18 22:00 10/14/18 22:15 Procardia Xl PO 60 mg HS LISA Administration Ondansetron HCl 4 mg 10/14/18 20:15 Zofran IV Q8H PRN Nausea And Vomiting Oxycodone/Acetaminophen 1 tab 10/14/18 20:15 Percocet 5/325 PO Q6H PRN Pain, Moderate (4-6) Sodium Chloride 10 ml 10/14/18 22:00 10/15/18 10:26 Sodium Chloride Flush Syringe 10 Ml IV 10 ml BID LISA Administration Sodium Chloride 10 ml 10/14/18 20:15 Sodium Chloride Flush Syringe 10 Ml IV PRN PRN LINE FLUSH Zolpidem Tartrate 5 mg 10/14/18 20:15 Ambien PO QHS PRN Insomnia
[2018-10-15] MEDS: NACL 0.9% 1000 ML 1,000 ML IV SCH ×2 (14:08→22:33)
[2018-10-15] MEDS: HumaLOG SUB-Q SCH ×2 (14:08→17:49)
[2018-10-15] MEDS: TOPROL XL PO SCH (22:32)
[2018-10-15] MEDS: PROCARDIA XL PO SCH (22:33)
[2018-10-16] MEDS: NACL 0.9% 1000 ML 1,000 ML IV SCH (06:45)
[2018-10-16 07:07] LABS: Calcium 8.7 mg/dL (8.4-10.2)
[2018-10-16] MEDS: HumaLOG SUB-Q SCH ×5 (07:30→22:29)
--- NOTE | 2018-10-16 09:08 | Progress Note ---
Subjective Interval history: Patient was seen today for follow-up on multiple renal related issues Events of this hospitalization noted Patient denies having any chest pain pressure or shortness of breath Vitals labs intake output medications were reviewed Social history: Reviewed Allergies: Reviewed Family history: Reviewed Physical examination HEENT: Oral mucosa moist no pallor or icterus Neck: Supple no JVD Chest: Clear to auscultation anteriorly CVS: Regular rate and rhythm S1 and S2 heard Abdomen: Soft nontender no suprapubic masses no organomegaly appreciable Extremity: Dry skin less than 1+ peripheral edema Musculoskeletal: No joint effusion noted in knees and ankle Neurological: Alert awake Dermatology: No petechial rashes Psychiatry: No evidence of any agitation and aggression noted Assessment and plan Renal failure: Patient's creatinine is currently improving slowly upon admission was 3.7 currently around 2.9 no acute or emergent indication for renal replacement therapy Noted to have bilateral renal stone on the ultrasonogram obtained 10/14/2018 Follow-up on the pending labs Review the old records show that patient has had a creatinine of 1.5 and 2014 History of hypertension, diabetes, makes him higher risk for renal failure and progression over time patient adequately counseled and educated Increase hydralazine to 100 mg 3 times a day Diabetes mellitus type 2: Will need follow-up Proteinuria currently around 2.8 g which is concerning making the patient higher risk for progression to end-stage renal disease patient made aware Hypertension: Long-standing: Noted to be noncompliant, History of non-steroidal medication use remotely Hypertension: Currently on nifedipine 60 mg once a day, metoprolol 50 mg daily as well as hydralazine 50 mg 3 times a day Patient was clearly told that he will need to make an appointment for follow-up in the office upon discharge Can be considered for angiotensin receptor harrison in the outpatient setting when renal function stabilizes Patient was adequately counseled and educated regarding multiple renal related issues Pertinent lab findings were discussed with patient, patient does exhibit good understanding of renal issues We'll continue to follow and make recommendation from renal standpoint Objective - Vital Signs Vital signs: Vital Signs - 12hr 10/15/18 10/15/18 10/16/18 22:26 22:32 02:00 Temperature 99.1 F Pulse Rate 103 H 104 H Respiratory 20 Rate Blood Pressure 173/98 173/98 O2 Sat by Pulse 97 97 Oximetry 10/16/18 06:14 Temperature 98.4 F Pulse Rate 78 Respiratory 18 Rate Blood Pressure 149/78 O2 Sat by Pulse 95 Oximetry - Lab 10/15/18 05:51 10/16/18 06:25 Most recent lab results Calcium 8.7 mg/dL (8.4-10.2) 10/16/18 06:25 Phosphorus 3.50 mg/dL (2.5-4.5) 10/14/18 10:00 Urine Creatinine 103.5 mg/dL (0.1-20.0) H 10/15/18 11:00 Urine Sodium 90 mmol/L 10/15/18 11:00 Urine Total Protein 291 mg/dL (5-11.8) H 10/15/18 11:00 Medications & Allergies - Medications Allergies/Adverse Reactions: Allergies No Known Allergies Allergy (Unverified 05/10/13 10:21) Home Medications: Home Medications Medication Instructions Recorded Confirmed Last Taken Type Insulin Glargine,Hum.rec.anlog 15 unit SQ QHS #3 ml 09/03/13 10/14/18 Unknown Rx [Lantus] Acetaminophen/Codeine 1 tab PO Q6H PRN #15 tab 05/15/14 10/14/18 Unknown Rx [Acetaminophen-Codeine #3 TAB] Diclofenac Dr [Tayo Beaver] 75 mg PO TID #21 tablet 05/15/14 10/14/18 Unknown Rx Metoprolol Succinate 50 mg PO HS 10/14/18 10/14/18 Unknown History NIFEdipine [Nifedipine ER] 1 tab PO HS 10/14/18 10/14/18 Unknown History Olmesartan Medoxomil 40 mg PO HS 10/14/18 10/14/18 Unknown History Torsemide 5 mg PO DAILY 10/14/18 10/14/18 Unknown History hydrALAZINE [Apresoline TAB] 50 mg PO BID 10/14/18 10/14/18 Unknown History Active Medications: Generic Name Dose Route Start Last Admin Trade Name Freq PRN Reason Stop Dose Admin Acetaminophen 650 mg 10/14/18 20:15 Tylenol PO Q4H PRN Pain MILD(1-3)/Fever >100.5/MASTERSON Acetaminophen/Codeine Phosphate 1 tab 10/14/18 20:11 Tylenol #3 PO Q6H PRN Pain Dextrose 50 ml 10/15/18 08:11 10/15/18 08:20 D50w (25gm) Syringe IV 50 ml PRN PRN Administration Hypoglycemia Heparin Sodium (Porcine) 5,000 unit 10/14/18 22:15 10/15/18 22:33 Heparin SUB-Q 5,000 unit Q12HR LISA Administration Hydromorphone HCl 1 mg 10/14/18 20:15 10/14/18 22:18 Dilaudid IV 1 mg Q3H PRN Administration Pain , Severe (7-10) Sodium Chloride 1,000 mls @ 125 mls/hr 10/15/18 14:00 10/16/18 06:45 Nacl 0.9% 1000 Ml IV 125 mls/hr DIRECT LISA Administration Insulin Human Lispro 0 unit 10/15/18 11:30 10/16/18 00:00 Humalog SUB-Q Not Given ACHS [facility] Protocol Magnesium Hydroxide 30 ml 10/14/18 20:15 Milk Of Magnesia PO Q4H PRN Constipation Metoclopramide HCl 5 mg 10/14/18 20:34 Reglan IV Q6H PRN Nausea And Vomiting Metoprolol Succinate 50 mg 10/14/18 22:00 10/15/18 22:32 Toprol Xl PO 50 mg QHS LISA Administration Nifedipine 60 mg 10/14/18 22:00 10/15/18 22:33 Procardia Xl PO 60 mg HS LISA Administration Ondansetron HCl 4 mg 10/14/18 20:15 Zofran IV Q8H PRN Nausea And Vomiting Oxycodone/Acetaminophen 1 tab 10/14/18 20:15 Percocet 5/325 PO Q6H PRN Pain, Moderate (4-6) Sodium Chloride 10 ml 10/14/18 22:00 10/15/18 22:33 Sodium Chloride Flush Syringe 10 Ml IV 10 ml BID LISA Administration Sodium Chloride 10 ml 10/14/18 20:15 Sodium Chloride Flush Syringe 10 Ml IV PRN PRN LINE FLUSH Zolpidem Tartrate 5 mg 10/14/18 20:15 Ambien PO QHS PRN Insomnia
--- NOTE | 2018-10-16 09:59 | Progress Note ---
Assessment and Plan Assessment and plan: Acute renal failure -On IV fluids -creatinine level improving, will monitor -Brain ultrasound showed bilateral nephrolithiasis without hydronephrosis -Nephrology following Neck pain -CT cervical spine showed degenerative changes: C3 to C4 and C7 to T1 -MRI cervical spine pending Hypertension -Blood pressure improved on current anti-hypertensives, will adjust as needed DM2 with am hypoglycemia -Hemoglobin A1c: 6.6 -Continue SSI, will add late night snack Disposition: For discharge when medically stable History Interval history: Patient has no new complaints. Hospitalist Physical - Constitutional Vitals: Temp Pulse Resp BP Pulse Ox 98.4 F 78 18 149/78 95 10/16/18 06:14 10/16/18 06:14 10/16/18 06:14 10/16/18 06:14 10/16/18 06:14 General appearance: Present: no acute distress, obese - EENT Eyes: Present: PERRL, EOM intact ENT: hearing intact, clear oral mucosa - Neck Neck: Present: supple - Respiratory Respiratory effort: normal Respiratory: bilateral: CTA - Cardiovascular Rhythm: regular Heart Sounds: Present: S1 & S2 - Extremities Extremity abnormal: edema (in both feet) - Abdominal General gastrointestinal: soft, non-tender, normal bowel sounds - Integumentary Integumentary: Present: clear, warm, dry - Neurologic Neurologic: CNII-XII intact Results - Labs CBC & Chem 7: 10/15/18 05:51 10/16/18 06:25 Labs: Laboratory Last Values WBC 6.7 K/mm3 (4.5-11.0) 10/15/18 05:51 RBC 4.43 M/mm3 (3.65-5.03) 10/15/18 05:51 Hgb 13.2 gm/dl (11.8-15.2) 10/15/18 05:51 Hct 40.0 % (35.5-45.6) 10/15/18 05:51 MCV 90 fl (84-94) 10/15/18 05:51 MCH 30 pg (28-32) 10/15/18 05:51 MCHC 33 % (32-34) 10/15/18 05:51 RDW 13.8 % (13.2-15.2) 10/15/18 05:51 Plt Count 315 K/mm3 (140-440) 10/15/18 05:51 Lymph % (Auto) 43.2 % (13.4-35.0) H 10/15/18 05:51 Titus % (Auto) 8.8 % (0.0-7.3) H 10/15/18 05:51 Eos % (Auto) 2.0 % (0.0-4.3) 10/15/18 05:51 Baso % (Auto) 0.8 % (0.0-1.8) 10/15/18 05:51 Lymph # 2.9 K/mm3 (1.2-5.4) 10/15/18 05:51 Titus # 0.6 K/mm3 (0.0-0.8) 10/15/18 05:51 Eos # 0.1 K/mm3 (0.0-0.4) 10/15/18 05:51 Baso # 0.1 K/mm3 (0.0-0.1) 10/15/18 05:51 Seg Neutrophils % 45.2 % (40.0-70.0) 10/15/18 05:51 Seg Neutrophils # 3.0 K/mm3 (1.8-7.7) 10/15/18 05:51 Sodium 140 mmol/L (137-145) 10/16/18 06:25 Potassium 4.3 mmol/L (3.6-5.0) 10/16/18 06:25 Chloride 106.9 mmol/L (98-107) 10/16/18 06:25 Carbon Dioxide 22 mmol/L (22-30) 10/16/18 06:25 Anion Gap 15 mmol/L 10/16/18 06:25 BUN 35 mg/dL (9-20) H 10/16/18 06:25 Creatinine 2.9 mg/dL (0.8-1.5) H 10/16/18 06:25 Estimated GFR 27 ml/min 10/16/18 06:25 BUN/Creatinine Ratio 12 % 10/16/18 06:25 Glucose 78 mg/dL (75-100) 10/16/18 06:25 POC Glucose 68 (70-105) L 10/16/18 07:35 Hemoglobin A1c 6.6 % (4-6) H 10/14/18 20:53 Calcium 8.7 mg/dL (8.4-10.2) 10/16/18 06:25 Phosphorus 3.50 mg/dL (2.5-4.5) 10/14/18 10:00 Total Bilirubin 0.20 mg/dL (0.1-1.2) 10/15/18 05:51 Direct Bilirubin < 0.2 mg/dL (0-0.2) 10/14/18 10:00 Indirect Bilirubin 0.0 mg/dL 10/14/18 10:00 AST 14 units/L (5-40) 10/15/18 05:51 ALT 13 units/L (7-56) 10/15/18 05:51 Alkaline Phosphatase 45 units/L (35-129) 10/15/18 05:51 Total Creatine Kinase 628 units/L (55-170) H 10/14/18 10:00 CK-MB (CK-2) 5.7 ng/mL (0.0-4.0) H 10/14/18 10:00 CK-MB (CK-2) Rel Index 0.9 (0-4) 10/14/18 10:00 Total Protein 7.2 g/dL (6.3-8.2) 10/15/18 05:51 Albumin 3.0 g/dL (3.9-5) L 10/15/18 05:51 Albumin/Globulin Ratio 0.7 % 10/15/18 05:51 Urine Color Straw (Yellow) 10/14/18 09:28 Urine Turbidity Clear (Clear) 10/14/18 09:28 Urine pH 6.0 (5.0-7.0) 10/14/18 09:28 Ur Specific [place] 1.015 (1.003-1.030) 10/14/18 09:28 Urine Protein 100 mg/dl mg/dL (Negative) 10/14/18 09:28 Urine Glucose (UA) 50 mg/dL (Negative) 10/14/18 09:28 Urine Ketones Neg mg/dL (Negative) 10/14/18 09:28 Urine Blood Sm (Negative) 10/14/18 09:28 Urine Nitrite Neg (Negative) 10/14/18 09:28 Urine Bilirubin Neg (Negative) 10/14/18 09:28 Urine Urobilinogen < 2.0 mg/dL (<2.0) 10/14/18 09:28 Ur Leukocyte Esterase Neg (Negative) 10/14/18 09:28 Urine WBC (Auto) 1.0 /HPF (0.0-6.0) 10/14/18 09:28 Urine RBC (Auto) 4.0 /HPF (0.0-6.0) 10/14/18 09:28 U Epithel Cells (Auto) < 1.0 /HPF (0-13.0) 10/14/18 09:28 Urine Eosinophils None seen (None Seen) 10/15/18 11:00 Urine Creatinine 103.5 mg/dL (0.1-20.0) H 10/15/18 11:00 Protein/Creatinin Ratio 2.81 10/15/18 11:00 Urine Sodium 90 mmol/L 10/15/18 11:00 Urine Total Protein 291 mg/dL (5-11.8) H 10/15/18 11:00 Hepatitis A IgM Ab Non-reactive (NonReactive) 10/15/18 11:10 Hep Bs Antigen Non-reactive (Negative) 10/15/18 11:10 Hep B Core IgM Ab Non-reactive (NonReactive) 10/15/18 11:10 Hepatitis C Antibody Non-reactive (NonReactive) 10/15/18 11:10 Active Medications - Current Medications Current Medications: Generic Name Dose Route Start Last Admin Trade Name Freq PRN Reason Stop Dose Admin Acetaminophen 650 mg 10/14/18 20:15 Tylenol PO Q4H PRN Pain MILD(1-3)/Fever >100.5/MASTERSON Acetaminophen/Codeine Phosphate 1 tab 10/14/18 20:11 Tylenol #3 PO Q6H PRN Pain Dextrose 50 ml 10/15/18 08:11 10/15/18 08:20 D50w (25gm) Syringe IV 50 ml PRN PRN Administration Hypoglycemia Heparin Sodium (Porcine) 5,000 unit 10/14/18 22:15 10/15/18 22:33 Heparin SUB-Q 5,000 unit Q12HR LISA Administration Hydralazine HCl 100 mg 10/16/18 09:07 Apresoline PO TID LISA Hydromorphone HCl 1 mg 10/14/18 20:15 10/14/18 22:18 Dilaudid IV 1 mg Q3H PRN Administration Pain , Severe (7-10) Sodium Chloride 1,000 mls @ 125 mls/hr 10/15/18 14:00 10/16/18 06:45 Nacl 0.9% 1000 Ml IV 125 mls/hr DIRECT LISA Administration Insulin Human Lispro 0 unit 10/15/18 11:30 10/16/18 00:00 Humalog SUB-Q Not Given ACHS [facility] Protocol Magnesium Hydroxide 30 ml 10/14/18 20:15 Milk Of Magnesia PO Q4H PRN Constipation Metoclopramide HCl 5 mg 10/14/18 20:34 Reglan IV Q6H PRN Nausea And Vomiting Metoprolol Succinate 50 mg 10/14/18 22:00 10/15/18 22:32 Toprol Xl PO 50 mg QHS LISA Administration Nifedipine 60 mg 10/14/18 22:00 10/15/18 22:33 Procardia Xl PO 60 mg HS LISA Administration Ondansetron HCl 4 mg 10/14/18 20:15 Zofran IV Q8H PRN Nausea And Vomiting Oxycodone/Acetaminophen 1 tab 10/14/18 20:15 Percocet 5/325 PO Q6H PRN Pain, Moderate (4-6) Sodium Chloride 10 ml 10/14/18 22:00 10/15/18 22:33 Sodium Chloride Flush Syringe 10 Ml IV 10 ml BID LISA Administration Sodium Chloride 10 ml 10/14/18 20:15 Sodium Chloride Flush Syringe 10 Ml IV PRN PRN LINE FLUSH Zolpidem Tartrate 5 mg 10/14/18 20:15 Ambien PO QHS PRN Insomnia
[2018-10-16] MEDS: SODIUM CHLORIDE FLUSH SYRINGE 10 ML IV SCH ×2 (10:00→22:46)
[2018-10-16] MEDS: HEPARIN SUB-Q SCH ×2 (10:41→22:46)
[2018-10-16] MEDS: APRESOLINE PO SCH ×2 (14:00→19:12)
[2018-10-16] MEDS: TOPROL XL PO SCH (22:44)
[2018-10-16] MEDS: PROCARDIA XL PO SCH (22:46)
[2018-10-17] MEDS: NACL 0.9% 1000 ML 1,000 ML IV SCH (06:04)
[2018-10-17 06:23] LABS: Calcium 8.8 mg/dL (8.4-10.2)
--- NOTE | 2018-10-17 08:50 | Progress Note ---
Subjective Interval history: Patient was seen today for follow-up on multiple renal related issues Events of this hospitalization noted Pressure is better Patient denies having any chest pain pressure or shortness of breath Vitals labs intake output medications were reviewed Social history: Reviewed Allergies: Reviewed Family history: Reviewed Physical examination HEENT: Oral mucosa moist no pallor or icterus Neck: Supple no JVD Chest: Clear to auscultation anteriorly CVS: Regular rate and rhythm S1 and S2 heard Abdomen: Soft nontender no suprapubic masses no organomegaly appreciable Extremity: Dry skin less than 1+ peripheral edema Musculoskeletal: No joint effusion noted in knees and ankle Neurological: Alert awake Dermatology: No petechial rashes Psychiatry: No evidence of any agitation and aggression noted Assessment and plan Acute kidney injury progressive improvement in renal function current creatinine 2.6 patient's creatinine, upon arrival was 3.7 Old records shows creatinine was 1.4 in 2013, patient has multiple risk factor for progression of renal failure over time Ultrasonogram shows bilateral renal stone patient will need to see urology in outpatient setting Metabolic acidosis goal bicarbonate around 24 No evidence of anemia at this time last hemoglobin was 13.2 Secondary hyperparathyroidism: Phosphorus is 3.5 well controlled History of nonobstructive vital medication use Hypertension needs ongoing monitoring follow-up, blood pressure controls are improving Proteinuria 2.8 g, likely due to diabetic hypertensive nephropathy will need follow-up in the outpatient setting No ARIADNA inhibitors or angiotensin receptor harrison for now Extensively counseled and educated about diet and lifestyle changes More than 35 minutes were spent in direct patient care today Pertinent lab findings were discussed with patient, patient does exhibit good understanding of renal issues We'll continue to follow and make recommendation from renal standpoint Objective - Vital Signs Vital signs: Vital Signs - 12hr 10/16/18 10/16/18 10/17/18 22:44 23:23 07:05 Temperature 98.3 F 98.2 F Pulse Rate 74 84 81 Respiratory 20 20 Rate Blood Pressure 186/87 184/98 Blood Pressure 156/86 [Left] O2 Sat by Pulse 98 Oximetry - Lab 10/15/18 05:51 10/17/18 04:27 Most recent lab results Calcium 8.8 mg/dL (8.4-10.2) 10/17/18 04:27 Phosphorus 3.50 mg/dL (2.5-4.5) 10/14/18 10:00 Urine Creatinine 103.5 mg/dL (0.1-20.0) H 10/15/18 11:00 Urine Sodium 90 mmol/L 10/15/18 11:00 Urine Total Protein 291 mg/dL (5-11.8) H 10/15/18 11:00 Medications & Allergies - Medications Allergies/Adverse Reactions: Allergies No Known Allergies Allergy (Unverified 05/10/13 10:21) Home Medications: Home Medications Medication Instructions Recorded Confirmed Last Taken Type Insulin Glargine,Hum.rec.anlog 15 unit SQ QHS #3 ml 09/03/13 10/14/18 Unknown Rx [Lantus] Acetaminophen/Codeine 1 tab PO Q6H PRN #15 tab 05/15/14 10/14/18 Unknown Rx [Acetaminophen-Codeine #3 TAB] Diclofenac Dr [Tayo Beaver] 75 mg PO TID #21 tablet 05/15/14 10/14/18 Unknown Rx Metoprolol Succinate 50 mg PO HS 10/14/18 10/14/18 Unknown History NIFEdipine [Nifedipine ER] 1 tab PO HS 10/14/18 10/14/18 Unknown History Olmesartan Medoxomil 40 mg PO HS 10/14/18 10/14/18 Unknown History Torsemide 5 mg PO DAILY 10/14/18 10/14/18 Unknown History hydrALAZINE [Apresoline TAB] 50 mg PO BID 10/14/18 10/14/18 Unknown History Active Medications: Generic Name Dose Route Start Last Admin Trade Name Freq PRN Reason Stop Dose Admin Acetaminophen 650 mg 10/14/18 20:15 Tylenol PO Q4H PRN Pain MILD(1-3)/Fever >100.5/MASTERSON Acetaminophen/Codeine Phosphate 1 tab 10/14/18 20:11 Tylenol #3 PO Q6H PRN Pain Dextrose 50 ml 10/15/18 08:11 10/15/18 08:20 D50w (25gm) Syringe IV 50 ml PRN PRN Administration Hypoglycemia Heparin Sodium (Porcine) 5,000 unit 10/14/18 22:15 10/16/18 22:46 Heparin SUB-Q 5,000 unit Q12HR LISA Administration Hydralazine HCl 100 mg 10/16/18 09:07 10/16/18 19:12 Apresoline PO 100 mg TID LISA Administration Hydromorphone HCl 1 mg 10/14/18 20:15 10/14/18 22:18 Dilaudid IV 1 mg Q3H PRN Administration Pain , Severe (7-10) Sodium Chloride 1,000 mls @ 125 mls/hr 10/15/18 14:00 10/17/18 06:04 Nacl 0.9% 1000 Ml IV 125 mls/hr DIRECT LISA Administration Insulin Human Lispro 0 unit 10/15/18 11:30 10/16/18 22:29 Humalog SUB-Q Not Given ACHS [facility] Protocol Magnesium Hydroxide 30 ml 10/14/18 20:15 Milk Of Magnesia PO Q4H PRN Constipation Metoclopramide HCl 5 mg 10/14/18 20:34 Reglan IV Q6H PRN Nausea And Vomiting Metoprolol Succinate 50 mg 10/14/18 22:00 10/16/18 22:44 Toprol Xl PO 50 mg QHS LISA Administration Nifedipine 60 mg 10/14/18 22:00 10/16/18 22:46 Procardia Xl PO 60 mg HS LISA Administration Ondansetron HCl 4 mg 10/14/18 20:15 Zofran IV Q8H PRN Nausea And Vomiting Oxycodone/Acetaminophen 1 tab 10/14/18 20:15 Percocet 5/325 PO Q6H PRN Pain, Moderate (4-6) Sodium Chloride 10 ml 10/14/18 22:00 10/16/18 22:46 Sodium Chloride Flush Syringe 10 Ml IV 10 ml BID LISA Administration Sodium Chloride 10 ml 10/14/18 20:15 Sodium Chloride Flush Syringe 10 Ml IV PRN PRN LINE FLUSH Zolpidem Tartrate 5 mg 10/14/18 20:15 Ambien PO QHS PRN Insomnia
[2018-10-17] MEDS: HumaLOG SUB-Q SCH ×2 (10:19→10:30)
[2018-10-17] MEDS: SODIUM CHLORIDE FLUSH SYRINGE 10 ML IV SCH (10:20)
[2018-10-17] MEDS: APRESOLINE PO SCH (10:20)
[2018-10-17] MEDS: HEPARIN SUB-Q SCH (10:23)
[2018-10-17 11:45] VITALS: BP 156/80
[2018-10-17] MEDS ORDERED: CARDURA PO SCH (12:00)
--- NOTE | 2018-10-17 12:20 | Discharge Summary ---
Providers - Providers Date of Admission: 10/14/18 13:48 Date of discharge: 10/17/18 Attending physician: TROY SOUSA 10/14/18 Consult to Case Management [CONS] Routine Services Needed at Discharge: Home Health Services Notified:: COPY LEFT FOR 10/14/18 22:10 Consult to Physician [CONS] Routine Comment: Consulting Provider: MEG MORRIS Physician Instructions: Reason For Exam: Kannan/ckd Primary care physician: MARIAM PALMER Hospitalization Reason for admission: Acute renal failure, Hypertensive emergency with SBP of 226, Neck pain Condition: Stable Pertinent studies: -Renal ultrasound -Cervical Spine CT and MRI -Head CT scan Procedures: None Hospital course: Final discharge diagnosis: -Acute renal failure, improved -Hypertensive emergency with SBP of 226 -Neck pain 2/2 degenerative changes: C3 to C4 and C7 to T1 -DM2 with hypoglycemia, stable Hospital course: On admission, patient was placed on IV fluid and nephrotoxins were avoided. He also received antihypertensives for blood pressure control. For the neck pain, further investigative testing was done with both CT and MRI which showed degenerative changes without acute fracture. He was noted to have some hypoglycemic episodes which necessitated adjusting his insulin regimen. Subsequently, the patient's renal function levels and blood pressure improved and he was then deemed stable for discharge with clinic follow-up. On discharge, the patient's home medications had to be adjusted due to his renal impairment. Disposition: DC-01 TO HOME OR SELFCARE Time spent for discharge: 35 minutes Core Measure Documentation - Palliative Care Palliative Care/ Comfort Measures: Not Applicable - Core Measures Any of the following diagnoses?: none Exam - Constitutional Vitals: Temp Pulse Resp BP Pulse Ox 98.5 F 74 16 156/80 98 10/17/18 11:37 10/17/18 11:37 10/17/18 11:37 10/17/18 11:37 10/17/18 11:37 General appearance: Present: no acute distress, well-nourished - EENT Eyes: Present: PERRL, EOM intact ENT: hearing intact, clear oral mucosa - Neck Neck: Present: supple, normal ROM - Respiratory Respiratory effort: normal Respiratory: bilateral: CTA - Cardiovascular Rhythm: regular Heart Sounds: Present: S1 & S2. Absent: rub, click - Extremities Extremities: pulses symmetrical Extremity abnormal: edema (in both feet) - Abdominal General gastrointestinal: Present: soft, non-tender, non-distended, normal bowel sounds Male genitourinary: Present: deferred - Integumentary Integumentary: Present: clear, warm, dry - Musculoskeletal Musculoskeletal: gait normal, strength equal bilaterally - Psychiatric Psychiatric: appropriate mood/affect, intact judgment & insight - Neurologic Neurologic: CNII-XII intact, moves all extremities Plan Follow up with: MARIAM PALMER JR, MD [Primary Care Provider] - 3-5 Days Prescriptions: hydrALAZINE [Apresoline TAB] 100 mg PO TID #90 tab
--- NOTE | 2018-10-17 13:51 | Magnetic Resonance Report ---
PROCEDURE: MR CERVICAL SPINE WO CON TECHNIQUE: CT of the cervical spine performed. Axial images and coronal and sagittal reformatted imag es were obtained. HISTORY: cervical radiculopathy COMPARISON: None FINDINGS: There is no fracture. Vertebral heights and alignment are maintained. At C2-3 there is no disc protrusion or spinal stenosis. At C3-4 there is some left uncovertebral spurring causing moderate left neuroforaminal narrowing. The re is no significant spinal stenosis. At C4-5 there is a central disc bulge causing minimal central spinal stenosis. At C5-6 there is a mild disc bulge without spinal stenosis. At C6-7 there is a left of midline disc bulge which minimally effaces left lateral recess. At C7-T1 there is right-sided uncovertebral spurring causing moderate right neuroforaminal narrowing. IMPRESSION: There is no acute cervical spine fracture or posttraumatic subluxation seen. C3-4 left and C7-T1 right uncovertebral spurring causing moderate neuroforaminal narrowing. Additional disc bulges as indicated above. This document is electronically signed by Patricia Sanchez MD., October 17 2018 01:49:12 PM ET
[2018-10-18 21:34] LABS: Albumin 2.9 g/dL (3.8-4.8); Gamma Globulin 1.5 g/dL (0.8-1.7)
[2018-10-19 20:21] LABS: Myeloperoxidase Antibody <1.0 AI (<1.0)
== END 2018-10-17 13:35 | disposition home or self-care (01) | DRG 683 ==
LOC: ED 04:16 → 3A 13:48
PROVIDERS: ADMIT Internal Medicine; ATTEND Internal Medicine
DX: N17.9 Acute kidney failure, unspecified (principal); E87.2 Acidosis; I16.1 Hypertensive emergency; M47.12 Other spondylosis with myelopathy, cervical region; I10 Essential (primary) hypertension; N20.0 Calculus of kidney; M54.2 Cervicalgia; E11.649 Type 2 diabetes mellitus with hypoglycemia without coma; N25.81 Secondary hyperparathyroidism of renal origin; R94.31 Abnormal electrocardiogram [ECG] [EKG]; E11.21 Type 2 diabetes mellitus with diabetic nephropathy; R80.9 Proteinuria, unspecified; Z79.4 Long term (current) use of insulin; Z79.899 Other long term (current) drug therapy; Z82.49 Family history of ischemic heart disease and other diseases of the circulatory system
CPT/HCPCS: 36415; 70450; 72125; 72141; 76770; 80048; 80053; 80074; 80076; 81001; 82550; 82553; 82570; 82962; 83036; 84100; 84156; 84165; 84300; 85025; 86021; 86160; 89050; 93005; 93010; G0378; J1170; J1644; J1815; J2270; J2405; J7030